=== PATIENT | male | born 1940 | race Caucasian/White ===

== ENCOUNTER 2016-07-15 13:13 | Emergency (ER) | payer MEDICARE ==
[2016-07-15 14:24] LABS: Appearance,Urine Clear (Clear); Bilirubin,Urine 1+ (Negative); Glucose,Urine (UA) Negative (Negative); Ketones,Urine Trace (Negative); Leukocyte Esterase,Urine Negative (Negative); Mucus,Urine Rare /hpf; Nitrite,Urine Negative (Negative); PH, Urine 5.5 (5.0-8.0); Particle Count 1373; Protein,Urine Negative (Negative); RBC,Urine 88 /hpf (0-5); Specific Gravity,Urine 1.014 (1.001-1.035); UA Billing (MACRO vs. MICRO) MICRO; Urobilinogen,Urine <2.0 mg/dL (<2.0); WBC,Urine 2 /hpf (0-5)
[2016-07-15] MEDS ORDERED: KETOROLAC 30 MG/ML 1 ML VIAL IVP STA (14:50)
[2016-07-15] MEDS ORDERED: ONDANSETRON 4 MG/2 ML VIAL IVP STA (14:50)
[2016-07-15] MEDS ORDERED: SODIUM CHLORIDE 0.9% 1,000 ML IV STA ×2 (14:50)
--- NOTE | 2016-07-15 14:56 | ED ---
Abdominal Pain HPI - General Chief Complaint: Abdominal Pain Stated Complaint: lower back & abdominal pain Time Seen by Provider: 07/15/16 14:41 Source: patient, RN notes reviewed Mode of arrival: ambulatory Limitations: no limitations - History of Present Illness Initial Comments: This is a 76-year-old male with a history of kidney stones who states he had the onset over last couple weeks of intermittent episodes of flank pain but last night started developing increased flank pain. He was in the right she has some nausea vomiting some urinary urgency. He states the pain has been as high as 7/10 currently is well 5/10 he does feel somewhat nauseated right now. He's had decreased oral intake due to the nausea that occurs after he tries to drink. He does feel similar to previous kidney stones. MD Complaint: flank pain - Related Data Home Medications Medication Instructions Recorded Confirmed Aspirin EC [Ecotrin] 325 mg PO DAILY 07/15/16 07/15/16 Ketorolac [Toradol] 10 mg PO HS 07/15/16 07/15/16 Lisinopril [Zestril] 10 mg PO DAILY 07/15/16 07/15/16 Multivitamins, Thera [Multivitamin 1 tab PO DAILY 07/15/16 07/15/16 (formulary)] Simvastatin [Zocor] 20 mg PO HS 07/15/16 07/15/16 metFORMIN HCL [Metformin HCl] 500 mg PO BID 07/15/16 07/15/16 Previous Rx's Medication Instructions Recorded Ketorolac [Toradol] 10 mg PO Q6HR #20 tab 07/15/16 Tamsulosin HCl [Flomax] 0.4 mg PO DAILY #7 cap 07/15/16 Allergies Allergy/AdvReac Type Severity Reaction Status Date / Time No Known Allergies Allergy Verified 07/15/16 14:29 Review of Systems ROS Statement: Those systems with pertinent positive or pertinent negative responses have been documented in the HPI. ROS Other: All systems not noted in ROS Statement are negative. Past Medical History Past Medical History: Hyperlipidemia, Hypertension Additional Past Medical History / Comment(s): kidney stone History of Any Multi-Drug Resistant Organisms: None Reported Additional Past Surgical History / Comment(s): lithotripsy,rt leg vein removal Past Psychological History: No Psychological Hx Reported Smoking Status: Former smoker Past Alcohol Use History: None Reported Past Drug Use History: None Reported General Exam - General Exam Comments Initial Comments: This is a well-developed well-nourished awake alert oriented times 3 male Limitations: no limitations General appearance: alert, in no apparent distress Head exam: Present: atraumatic, normocephalic, normal inspection Eye exam: Present: normal appearance, PERRL, EOMI. Absent: scleral icterus, conjunctival injection, periorbital swelling ENT exam: Present: mucous membranes dry Neck exam: Present: normal inspection. Absent: tenderness, meningismus, lymphadenopathy Respiratory exam: Present: normal lung sounds bilaterally. Absent: respiratory distress, wheezes, rales, rhonchi, stridor Cardiovascular Exam: Present: regular rate, normal rhythm, normal heart sounds. Absent: systolic murmur, diastolic murmur, rubs, gallop, clicks GI/Abdominal exam: Present: soft, normal bowel sounds. Absent: distended, tenderness, guarding, rebound, rigid Extremities exam: Present: normal inspection, full ROM, normal capillary refill. Absent: tenderness, pedal edema, joint swelling, calf tenderness Back exam: Present: normal inspection Neurological exam: Present: alert, oriented X3, CN II-XII intact Psychiatric exam: Present: normal affect, normal mood Skin exam: Present: warm, dry, intact, normal color. Absent: rash Course Vital Signs 07/15/16 07/15/16 13:44 16:02 Temperature 98.8 F 98.7 F Pulse Rate 97 87 Respiratory 18 18 Rate Blood Pressure 196/91 139/66 O2 Sat by Pulse 97 94 L Oximetry Medical Decision Making - Medical Decision Making I did discuss findings with the patient he is feeling no pain at this time he' ll be discharged he is currently not on Flomax will be placed on Flomax in addition to other pain medication. - Lab Data Result diagrams: 07/15/16 14:27 07/15/16 14:27 Lab Results 07/15/16 07/15/16 07/15/16 Range/Units 14:09 14:27 14:27 WBC 11.7 H (3.8-10.6) k/uL RBC 5.17 (4.30-5.90) m/uL Hgb 15.7 (13.0-17.5) gm/dL Hct 44.8 (39.0-53.0) % MCV 86.7 (80.0-100.0) fL MCH 30.3 (25.0-35.0) pg MCHC 35.0 (31.0-37.0) g/dL RDW 13.2 (11.5-15.5) % Plt Count 259 (150-450) k/uL Neutrophils % 90 % Lymphocytes % 6 % Monocytes % 3 % Eosinophils % 0 % Basophils % 0 % Neutrophils # 10.5 H (1.3-7.7) k/uL Lymphocytes # 0.6 L (1.0-4.8) k/uL Monocytes # 0.4 (0-1.0) k/uL Eosinophils # 0.0 (0-0.7) k/uL Basophils # 0.0 (0-0.2) k/uL Sodium 143 (137-145) mmol/L Potassium 4.7 (3.5-5.1) mmol/L Chloride 107 (98-107) mmol/L Carbon Dioxide 24 (22-30) mmol/L Anion Gap 12 mmol/L BUN 21 H (9-20) mg/dL Creatinine 1.60 H (0.66-1.25) mg/dL Est GFR (MDRD) Af Amer 51 (>60 ml/min/1.73 sqM) Est GFR (MDRD) Non-Af 42 (>60 ml/min/1.73 sqM) Glucose 149 H (74-99) mg/dL Calcium 10.1 (8.4-10.2) mg/dL Total Bilirubin 0.9 (0.2-1.3) mg/dL AST 32 (17-59) U/L ALT 34 (21-72) U/L Alkaline Phosphatase 79 (38-126) U/L Total Protein 7.7 (6.3-8.2) g/dL Albumin 4.7 (3.5-5.0) g/dL Amylase 89 (30-110) U/L Lipase 266 (23-300) U/L Urine Color Yellow Urine Appearance Clear (Clear) Urine pH 5.5 (5.0-8.0) Ur Specific [place] 1.014 (1.001-1.035) Urine Protein Negative (Negative) Urine Glucose (UA) Negative (Negative) Urine Ketones Trace H (Negative) Urine Blood Moderate H (Negative) Urine Nitrite Negative (Negative) Urine Bilirubin 1+ H (Negative) Urine Urobilinogen <2.0 (<2.0) mg/dL Ur Leukocyte Esterase Negative (Negative) Urine RBC 88 H (0-5) /hpf Urine WBC 2 (0-5) /hpf Urine Mucus Rare H (None) /hpf - Radiology Data Radiology results: report reviewed (I did review the imaging and reports a 5.2 mm stone at the distal right UVJ.), image reviewed Disposition Clinical Impression: Ureterolithiasis, Kidney stone on right side Disposition: HOME SELF-CARE Condition: Good Instructions: Renal Colic (ED), Kidney Stones (ED), Flank Pain (ED) Prescriptions: Ketorolac [Toradol] 10 mg PO Q6HR #20 tab Tamsulosin HCl [Flomax] 0.4 mg PO DAILY #7 cap Referrals: Veronica Nicole DO [Primary Care Provider] - 1-2 days
[2016-07-15 15:09] LABS: Basophils % (A) 0 %; CH 30.4; CHCM 35.3; Eosinophils % (A) 0 %; HCT 44.8 % (39.0-53.0); HDW 2.92; HGB 15.7 gm/dL (13.0-17.5); Luc # (Auto) 0.09; Luc % (Auto) 1; Lymphocytes # (A) 0.6 k/uL (1.0-4.8); Lymphocytes % (A) 6 %; MCH 30.3 pg (25.0-35.0); MCV 86.7 fL (80.0-100.0); Mean Platelet Volume 6.9; Monocytes # (A) 0.4 k/uL (0-1.0); Monocytes % (A) 3 %; Neutrophils # (A) 10.5 k/uL (1.3-7.7); Neutrophils % (A) 90 %; RBC 5.17 m/uL (4.30-5.90); RDW 13.2 % (11.5-15.5); WBC 11.7 k/uL (3.8-10.6); WBC (Perox) 11.21
--- NOTE | 2016-07-15 15:20 | XR ---
EXAMINATION TYPE: XR KUB DATE OF EXAM ORDERED: 07/15/2016 HISTORY: abdominal pain. COMPARISON: Previous study dated 11/15/2012. FINDINGS: The abdominal gas pattern is normal. There is no evidence of obstruction or free air. Ther e are stable phleboliths within the pelvis. No definite nephrolithiasis or ureterolithiasis is identi fied.. IMPRESSION: 1. NO ACUTE INTRA-ABDOMINAL ABNORMALITY. 2. NO DEFINITE RENAL OR URETERIC CALCULUS..
[2016-07-15 15:22] LABS: Calcium 10.1 mg/dL (8.4-10.2); Potassium 4.7 mmol/L (3.5-5.1); Total Bilirubin 0.9 mg/dL (0.2-1.3); Total Protein 7.7 g/dL (6.3-8.2)
--- NOTE | 2016-07-15 17:04 | CT ---
EXAMINATION TYPE: CT abdomen pelvis wo con DATE OF EXAM: 07/15/2016 COMPARISON: NONE HISTORY: Abdominal pain with vomiting. Hx of kidney stones. CT DLP: 1219 mGycm Examination of the solid and hollow viscera is limited given the lack of contrast. FINDINGS: LUNG BASES: No evidence for nodule. No evidence for infiltrate. Basilar fibrosis. LIVER/GB: Numerous gallstones noted. No wall thickening seen. No space-occupying hepatic lesion. PANCREAS: No pancreatic mass identified. No inflammatory process seen. SPLEEN: No evidence for splenomegaly. No intrasplenic lesions seen. ADRENALS: No adrenal nodules identified. No evidence for thickening. KIDNEYS: Bilateral renal cystic lesions noted. 5.2 mm right UVJ calculus resulting in mild right-side d hydroureteronephrosis. There is right perinephric stranding and mild renal edema seen. Several nono bstructing calculi are also noted bilaterally. BOWEL: Appendix has a normal appearance. No evidence of bowel obstruction. No inflammatory process. Lymph nodes: No evidence for adenopathy greater than 1 cm. Abdominal aorta: Atheromatous changes seen. No evidence for aneurysm. Genital organs: No significant abnormality. Other: No significant abnormality. IMPRESSION: 1.5.2 mm right UVJ calculus resulting in mild right-sided hydroureteronephrosis. 2. Multiple gallstones. 3. Bilateral nonobstructing nephrolithiasis. 4. Bilateral renal cystic lesions.
[2016-07-15 17:55] VITALS: BP 137/77; PULSE 89; RESP 16; TEMP 97.9
== END 2016-07-15 18:00 | disposition home or self-care (01) ==
LOC: EC 13:13
DX: N20.2 Calculus of kidney with calculus of ureter (principal); R11.2 Nausea with vomiting, unspecified; E78.5 Hyperlipidemia, unspecified; I10 Essential (primary) hypertension; Z87.891 Personal history of nicotine dependence; Z79.82 Long term (current) use of aspirin; Z79.891 Long term (current) use of opiate analgesic; Z79.84 Long term (current) use of oral hypoglycemic drugs; Z79.899 Other long term (current) drug therapy
CPT/HCPCS: 36415; 80053; 82150; 83690; 85025; 81001; 87086; 74000; 74176; 99284; 96374; 96375; 96361 ×2; J2405; J1885

== ENCOUNTER → 2016-09-09 | Outpatient (CLI) | payer MEDICARE ==
--- NOTE | 2016-09-10 08:04 | US ---
EXAMINATION TYPE: US kidneys/renal and bladder DATE OF EXAM: 09/09/2016 COMPARISON: CT 07/15/2016 CLINICAL HISTORY: N20.0 CALCULUS OF KIDNEYS, N20.1 CALCULUS OF URETER. EXAM MEASUREMENTS: Right Kidney: 11.3 x 4.3 x 4.9 cm Left Kidney: 12.1 x 5.3 x 5.4 cm Bilateral renal cysts visualized Right Kidney: Anechoic area mid measuring 4.0 x 3.5 x 3.6 cm. Anechoic area upper pole measuring 3.5 x 3.4 x 3.3cm. Multiple echogenic foci seen, largest 1cm. may overestimate renal calculus size Left Kidney: Anechoic area upper pole measuring 4.3 x 3.9 x 3.7cm. Anechoic area lower pole measuring 2.7 x 2.5 2.5cm. Multiple echogenic foci seen. Bladder: wnl Bilateral Jets seen: Yes Cysts within the bilateral kidneys are simple in appearance. There is increased through transmission and imperceptible wall. No hydronephrosis bilaterally. Cortical medullary differentiation is maintain ed.. IMPRESSION: Bilateral nephrolithiasis and simple cysts as noted on patient's CT scan. No hydronephrosis.
== END | disposition home or self-care (01) ==
LOC: RADUSWWP 15:25
PROVIDERS: ATTEND Urology
DX: N20.0 Calculus of kidney (principal); N28.1 Cyst of kidney, acquired
CPT/HCPCS: 76770

== ENCOUNTER 2022-09-08 09:38 | Emergency (ER) | payer MEDICARE ==
[2022-09-08] MEDS ORDERED: SODIUM CHLORIDE 0.9% 1,000 ML IV STA ×2 (10:11→11:36)
[2022-09-08] MEDS ORDERED: ONDANSETRON 4 MG/2 ML VIAL IVP STA (10:11)
--- NOTE | 2022-09-08 10:38 | ED ---
General Adult HPI - General Chief complaint: Dizziness Stated complaint: dizziness Time Seen by Provider: 09/08/22 09:39 Source: patient, EMS, RN notes reviewed, old records reviewed Mode of arrival: EMS - History of Present Illness Initial comments: Patient is a 82-year-old male who presents emergency Department complaining of lightheadedness. States he worked a lot outside cutting up a tree yesterday. It is little the summer and was hot and humid. States that he felt okay yesterday and took frequent breaks but may not have drank enough fluids. States that he went to bed and felt fine last night but then when he awoke this morning her time he stood up he felt lightheaded. Denies a room spinning sensation. States he does endorse some mild nausea with it. Denies abdominal pain or chest pain. Denies shortness of breath. Denies headache, blurry vision. Denies any urinary complaints. States when sitting he feels fine but when he stands up is when he has the symptoms. Started since he awoke this morning. Presents for further evaluation of this time. No history of vertigo. Does have history of diabetes as well as hypertension. - Related Data Home Medications Medication Instructions Recorded Confirmed Multivitamins, Thera [Multivitamin 1 tab PO DAILY 07/15/16 09/08/22 (formulary)] Simvastatin [Zocor] 20 mg PO HS 07/15/16 09/08/22 lisinopriL [Zestril] 10 mg PO DAILY 07/15/16 09/08/22 metFORMIN HCL [Metformin HCl] 500 mg PO BID 07/15/16 09/08/22 Acetaminophen Tab [Tylenol Tab] 1,000 mg PO Q6HR PRN 09/08/22 09/08/22 Aspirin EC [Ecotrin Low Dose] 81 mg PO DAILY 09/08/22 09/08/22 Fexofenadine HCl [[place] Allergy] 180 mg PO DAILY 09/08/22 09/08/22 Latanoprost [Latanoprost 0.005%] 1 drop BOTH EYES HS 09/08/22 09/08/22 Previous Rx's Medication Instructions Recorded Tamsulosin HCl [Flomax] 0.4 mg PO DAILY #7 cap 07/15/16 Allergies Allergy/AdvReac Type Severity Reaction Status Date / Time No Known Allergies Allergy Verified 09/08/22 11:38 Review of Systems ROS Statement: Those systems with pertinent positive or pertinent negative responses have been documented in the HPI. Review of Systems: CONST: Denies fever EYES: Denies blurry vision ENT: Denies nasal congestion C/V: Denies Chest pain RESP: Denies shortness of breath GI: Denies abdominal pain : Denies dysuria SKIN: Denies rash. MSK: Denies joint pain. NEURO: Denies headache ROS Other: All systems not noted in ROS Statement are negative. Past Medical History Past Medical History: Hyperlipidemia, Hypertension Additional Past Medical History / Comment(s): kidney stone History of Any Multi-Drug Resistant Organisms: None Reported Additional Past Surgical History / Comment(s): lithotripsy,rt leg vein removal Past Psychological History: No Psychological Hx Reported Past Alcohol Use History: None Reported Past Drug Use History: None Reported General Exam - General Exam Comments Initial Comments: General: Appears in no acute distress. HEAD: Normal with no signs of head trauma. EYES: PERRLA, EOMI, conjunctiva normal, no discharge. ENT: Hearing grossly intact, normal oropharynx. Mildly dry mucous membranes. RESPIRATORY: Clear breath sounds bilaterally. No wheezes, rales, or rhonchi. C/V: Regular rate and rhythm. S1 and S2 auscultated, no edema, peripheral pulses 2+ and intact throughout ABD: Abd is soft, nontender, nondistended EXT: Normal range of motion, no obvious deformity SKIN: No rashes or lesions observed on exposed skin. NEURO: Alert and oriented x 4. Cranial nerves II-XII intact. No focal sensory or strength deficits. NIH of 0. GCS 15. Course Vital Signs 09/08/22 09/08/22 09/08/22 09:48 09:57 11:10 Temperature 97.4 F L Pulse Rate 66 62 56 L Pulse Rate [ Sitting] Pulse Rate [ Standing] Pulse Rate [ Supine] Respiratory 15 17 15 Rate Blood Pressure 147/82 144/77 138/70 Blood Pressure [Sitting] Blood Pressure [Standing] Blood Pressure [Supine] O2 Sat by Pulse 96 96 95 Oximetry 09/08/22 09/08/22 12:58 13:25 Temperature 97 F L Pulse Rate 60 Pulse Rate [ 63 Sitting] Pulse Rate [ 67 Standing] Pulse Rate [ 66 Supine] Respiratory 18 Rate Blood Pressure 160/80 Blood Pressure 146/79 [Sitting] Blood Pressure 139/79 [Standing] Blood Pressure 149/79 [Supine] O2 Sat by Pulse 98 Oximetry Medical Decision Making - Medical Decision Making Was pt. sent in by a medical professional or institution ([facility], CORONER/MEDICAL EXAMINER, urgent care, hospital, or care home...) When possible be specific @ -No Did you speak to anyone other than the patient for history (EMS, parent, family, police, friend...)? What history was obtained from this source @ -No Did you review nursing and triage notes (agree or disagree)? Why? @ -I reviewed and agree with nursing and triage notes Were old charts reviewed (outside hosp., previous admission, EMS record, old EKG, old radiological studies, urgent care reports/EKG's, care home records)? Report findings @ -No old charts were reviewed Differential Diagnosis (chest pain, altered mental status, abdominal pain women, abdominal pain men, vaginal bleeding, weakness, fever, dyspnea, syncope, headache, dizziness, GI bleed, back pain, seizure, CVA, palpatations, mental health, musculoskeletal)? @ -Differential Near-Syncope: Valvular disease, hypertrophic cardiomyopathy, pulmonary embolism, tamponade, tachycardia, bradycardia, MD, hypovolemia, hemorrhage, dissection, anemia, intracranial hemorrhage, seizure, hypoglycemia, carbon monoxide poisoning, this is not meant to be an all-inclusive list. EKG interpreted by me (3pts min.). @ -As above X-rays interpreted by me (1pt min.). @ -Chest x-ray revealed no obvious acute cardio pulmonary process. Radiology concern for mild pulmonary vascular congestion but patient has no symptoms. CT interpreted by me (1pt min.). @ -None done U/S interpreted by me (1pt. min.). @ -None done What testing was considered but not performed or refused? (CT, X-rays, U/S, labs)? Why? @ -None What meds were considered but not given or refused? Why? @ -None Did you discuss the management of the patient with other professionals (professionals i.e. NICOLAS Reid, CORONER/MEDICAL EXAMINER, lab, RT, psych nurse, social services director, direct chill casting operator, teacher, juvenile probation officer, casework specialist)? Give summary @ -No Was smoking cessation discussed for >3mins.? @ -No Was critical care preformed (if so, how long)? @ -No Were there social determinants of health that impacted care today? How? (Homelessness, low income, unemployed, alcoholism, drug addiction, transportation, low edu. Level, literacy, decrease access to med. care, longterm, rehab)? @ -No Was there de-escalation of care discussed even if they declined (Discuss DNR or withdrawal of care, Hospice)? DNR status @ -No What co-morbidities impacted this encounter? (DM, HTN, Smoking, COPD, CAD, Cancer, CVA, ARF, Chemo, Hep., AIDS, mental health diagnosis, sleep apnea, morbid obesity)? @ -None Was patient admitted / discharged? Hospital course, mention meds given and rout e, prescriptions, significant lab abnormalities, going to OR and other pertinent info. @ -Based on the patient's presentation and physical exam, I'm concerned for near-syncopal episode for the patient at home. Could be secondary to dehydration but we will obtain cardiopulmonary labs well. Patient was in agreement this plan. He will be symptomatically treated with 2 L fluid bolus. Vital signs are within acceptable limits. He will also be given Zofran for his nausea that he had earlier. Patient was in agreement this plan. EKG showed sinus by cardiac no evidence of acute ischemia.Patient's labs are remarkable for an undetectable troponin. Urine is negative. Remainder the labs are within acceptable limits. Patient has a slight elevated BUN/creatinine which could be related to mild FAZAL. I reevaluated the patient. He is feeling improved. Orthostatic vital signs are within normal limits. Would like to go home and I believe this is reasonable. Discussed proper hydration and strict return precautions were discussed. Discussed the likely experienced may be some orthostatic hypotension earlier likely secondary to dehydration. He was in agreement with the plan for discharge and expressed understanding. I instructed the patient to follow up with their PCP in the next 1-3 days. I explained that the patient should return to the emergency department if they experience any worsening symptoms. Strict return precautions were discussed with the patient. The patient expressed understanding of these instructions. I answered all questions that the patient had. The patient was discharged home in good condition with their prescriptions and follow up information. Undiagnosed new problem with uncertain prognosis? @ -No Drug Therapy requiring intensive monitoring for toxicity (Heparin, Nitro, Insulin, Cardizem)? @ -No Were any procedures done? @ -No Diagnosis/symptom? @ - dehydration, lightheaded Acute, or Chronic, or Acute on Chronic? @ -Acute Uncomplicated (without systemic symptoms) or Complicated (systemic symptoms)? @ -Complicated Side effects of treatment? @ -No Exacerbation, Progression, or Severe Exacerbation? @ -No Poses a threat to life or bodily function? How? (Chest pain, USA, MD, pneumonia, PE, COPD, DKA, ARF, appy, cholecystitis, CVA, Diverticulitis, Homicidal, Suicidal, threat to staff... and all critical care pts) @ -No - Lab Data Result diagrams: 09/08/22 10:00 09/08/22 09:57 Lab Results 09/08/22 09/08/22 09/08/22 Range/Units 09:57 09:57 09:57 WBC (3.8-10.6) k/uL RBC (4.30-5.90) m/uL Hgb (13.0-17.5) gm/dL Hct (39.0-53.0) % MCV (80.0-100.0) fL MCH (25.0-35.0) pg MCHC (31.0-37.0) g/dL RDW (11.5-15.5) % Plt Count (150-450) k/uL MPV Neutrophils % % Lymphocytes % % Monocytes % % Eosinophils % % Basophils % % Neutrophils # (1.3-7.7) k/uL Lymphocytes # (1.0-4.8) k/uL Monocytes # (0-1.0) k/uL Eosinophils # (0-0.7) k/uL Basophils # (0-0.2) k/uL Sodium 139 (137-145) mmol/L Potassium 4.8 (3.5-5.1) mmol/L Chloride 106 (98-107) mmol/L Carbon Dioxide 25 (22-30) mmol/L Anion Gap 8 mmol/L BUN 22 H (9-20) mg/dL Creatinine 1.30 H (0.66-1.25) mg/dL Est GFR (CKD-EPI)AfAm 59 (>60 ml/min/1.73 sqM) Est GFR (CKD-EPI)NonAf 51 (>60 ml/min/1.73 sqM) Glucose 183 H (74-99) mg/dL Plasma Lactic Acid Dandre 1.7 (0.7-2.0) mmol/L Calcium 9.1 (8.4-10.2) mg/dL Magnesium 1.6 (1.6-2.3) mg/dL Total Bilirubin 0.8 (0.2-1.3) mg/dL AST 28 (17-59) U/L ALT 19 (4-49) U/L Alkaline Phosphatase 51 (38-126) U/L Creatine Kinase 71 (55-170) U/L Troponin I <0.012 (0.000-0.034) ng/mL Total Protein 6.9 (6.3-8.2) g/dL Albumin 3.9 (3.5-5.0) g/dL Urine Color Urine Appearance (Clear) Urine pH (5.0-8.0) Ur Specific [place] (1.001-1.035) Urine Protein (Negative) Urine Glucose (UA) (Negative) Urine Ketones (Negative) Urine Blood (Negative) Urine Nitrite (Negative) Urine Bilirubin (Negative) Urine Urobilinogen (<2.0) mg/dL Ur Leukocyte Esterase (Negative) Urine RBC (0-5) /hpf Urine WBC (0-5) /hpf Ur Squamous Epith Cells (0-4) /hpf Amorphous Sediment (None) /hpf Urine Bacteria (None) /hpf Urine Mucus (None) /hpf 09/08/22 09/08/22 09/08/22 Range/Units 10:00 10:00 11:50 WBC 7.6 (3.8-10.6) k/uL RBC 4.56 (4.30-5.90) m/uL Hgb 13.6 (13.0-17.5) gm/dL Hct 41.5 (39.0-53.0) % MCV 91.0 (80.0-100.0) fL MCH 29.9 (25.0-35.0) pg MCHC 32.8 (31.0-37.0) g/dL RDW 13.7 (11.5-15.5) % Plt Count 200 (150-450) k/uL MPV 8.5 Neutrophils % 75 % Lymphocytes % 14 % Monocytes % 5 % Eosinophils % 4 % Basophils % 0 % Neutrophils # 5.7 (1.3-7.7) k/uL Lymphocytes # 1.1 (1.0-4.8) k/uL Monocytes # 0.4 (0-1.0) k/uL Eosinophils # 0.3 (0-0.7) k/uL Basophils # 0.0 (0-0.2) k/uL Sodium (137-145) mmol/L Potassium (3.5-5.1) mmol/L Chloride (98-107) mmol/L Carbon Dioxide (22-30) mmol/L Anion Gap mmol/L BUN (9-20) mg/dL Creatinine (0.66-1.25) mg/dL Est GFR (CKD-EPI)AfAm (>60 ml/min/1.73 sqM) Est GFR (CKD-EPI)NonAf (>60 ml/min/1.73 sqM) Glucose (74-99) mg/dL Plasma Lactic Acid Dandre (0.7-2.0) mmol/L Calcium (8.4-10.2) mg/dL Magnesium (1.6-2.3) mg/dL Total Bilirubin (0.2-1.3) mg/dL AST (17-59) U/L ALT (4-49) U/L Alkaline Phosphatase (38-126) U/L Creatine Kinase (55-170) U/L Troponin I (0.000-0.034) ng/mL Total Protein (6.3-8.2) g/dL Albumin (3.5-5.0) g/dL Urine Color Yellow Urine Appearance Clear (Clear) Urine pH 6.0 (5.0-8.0) Ur Specific [place] 1.020 (1.001-1.035) Urine Protein Negative (Negative) Urine Glucose (UA) 1+ (Negative) Urine Ketones Negative (Negative) Urine Blood Negative (Negative) Urine Nitrite Negative (Negative) Urine Bilirubin Negative (Negative) Urine Urobilinogen <2.0 (<2.0) mg/dL Ur Leukocyte Esterase Negative (Negative) Urine RBC (0-5) /hpf Urine WBC (0-5) /hpf Ur Squamous Epith Cells (0-4) /hpf Amorphous Sediment (None) /hpf Urine Bacteria (None) /hpf Urine Mucus (None) /hpf - EKG Data -: EKG Interpreted by Me EKG Comments: 12-lead Electrocardiogram Interpretation Note EKG was reviewed and interpreted by myself. 12-lead ECG performed at 0937 is interpreted by me as revealing sinus bradycardia at a rate of 58 beats per minute. [place] is normal. [place] interval is 166 ms, QRS duration is 97 ms, QTc is 413 ms.. There were no ST or T wave abnormalities to suggest myocardial ischemia or injury. R wave progression across the precordium was satisfactory. By my interpretation this EKG is non-diagnostic for acute ischemia. Disposition Clinical Impression: Dehydration, Lightheaded Disposition: HOME SELF-CARE Condition: Good Instructions (If sedation given, give patient instructions): Dehydration (ED) Is patient prescribed a controlled substance at d/c from ED?: No Referrals: Veronica Nicole DO [Primary Care Provider] - 1-2 days Time of Disposition: 13:11
[2022-09-08 10:46] LABS: Basophils % (A) 0 %; Eosinophils # (A) 0.3 k/uL (0-0.7); Eosinophils % (A) 4 %; HCT 41.5 % (39.0-53.0); HGB 13.6 gm/dL (13.0-17.5); Lymphocytes # (A) 1.1 k/uL (1.0-4.8); Lymphocytes % (A) 14 %; MCH 29.9 pg (25.0-35.0); MCHC 32.8 g/dL (31.0-37.0); Mean Platelet Volume 8.5; Monocytes # (A) 0.4 k/uL (0-1.0); Monocytes % (A) 5 %; Neutrophils # (A) 5.7 k/uL (1.3-7.7); Neutrophils % (A) 75 %; Platelet Count 200 k/uL (150-450); RBC 4.56 m/uL (4.30-5.90); RDW 13.7 % (11.5-15.5); WBC 7.6 k/uL (3.8-10.6)
--- NOTE | 2022-09-08 11:05 | XR ---
EXAMINATION TYPE: XR chest 2V DATE OF EXAM: 09/08/2022 10:44 AM COMPARISON: Chest radiographs from TECHNIQUE: XR chest 2V Frontal and lateral views of the chest. CLINICAL INDICATION:Male, 82 years old with history of near syncope; FINDINGS: Lungs/Pleura: Low lung volumes are present. There is no evidence of pleural effusion, focal consolida tion, or pneumothorax. Pulmonary vascularity: Unremarkable. Heart/mediastinum: Cardiomediastinal silhouette is unremarkable. Musculoskeletal: No acute osseous pathology. IMPRESSION: Low lung volumes with a generalized hazy appearance which could represent atelectasis versus pulmonar y edema correlate with serum BNP.
[2022-09-08 11:26] LABS: ALT 19 U/L (4-49); AST 28 U/L (17-59); African American GFR (CKD) 59 (>60 ml/min/1.73 sqM); Albumin 3.9 g/dL (3.5-5.0); Alkaline Phosphatase 51 U/L (38-126); Anion Gap 8 mmol/L; Blood Urea Nitrogen 22 mg/dL (9-20); Calcium 9.1 mg/dL (8.4-10.2); Carbon Dioxide 25 mmol/L (22-30); Chloride 106 mmol/L (98-107); Creatine Kinase 71 U/L (55-170); Glucose 183 mg/dL (74-99); Magnesium 1.6 mg/dL (1.6-2.3); Non-African American GFR(CKD) 51 (>60 ml/min/1.73 sqM); Potassium 4.8 mmol/L (3.5-5.1); Sodium 139 mmol/L (137-145); Total Bilirubin 0.8 mg/dL (0.2-1.3); Total Protein 6.9 g/dL (6.3-8.2)
[2022-09-08 12:37] LABS: Color,Urine Yellow
[2022-09-08 12:38] LABS: Appearance,Urine Clear (Clear); Bilirubin,Urine Negative (Negative); Blood,Urine Negative (Negative); Glucose,Urine (UA) 1+ (Negative); Ketones,Urine Negative (Negative); Leukocyte Esterase,Urine Negative (Negative); Nitrite,Urine Negative (Negative); Protein,Urine Negative (Negative); Urobilinogen,Urine <2.0 mg/dL (<2.0)
[2022-09-08 13:26] VITALS: BP 160/80; PULSE 60; RESP 18; TEMP 97
== END 2022-09-08 13:28 | disposition home or self-care (01) ==
LOC: EC 09:38
DX: R42 Dizziness and giddiness (principal); E86.0 Dehydration; E78.5 Hyperlipidemia, unspecified; E11.9 Type 2 diabetes mellitus without complications; I10 Essential (primary) hypertension; Z79.82 Long term (current) use of aspirin; Z79.84 Long term (current) use of oral hypoglycemic drugs; Z79.899 Other long term (current) drug therapy
CPT/HCPCS: 36415; 71046; 80053; 81001; 81003; 82550; 83605; 83735; 84484; 85025; 93005; 96360; 96361; 99285